=== PATIENT | female | born 1990 | race Caucasian/White ===

== ENCOUNTER 2024-02-20 08:25 | Inpatient (IN) ==
[2024-02-20 09:04] LABS: Venous Bicarbonate HCO3 14.4 mmol/L (24-28)
[2024-02-20 09:10] LABS: ABS Lymphocytes 1.2 10^3/uL (1.0-4.8); ABS Monocytes 0.5 10^3/uL (0.0-0.9); ABS Nucleated RBC 0.01 10^3/ul; Hematocrit 43.6 % (35-45); Hemoglobin 14.3 g/dL (11.5-14.3); Lymphocyte % 6.5 %; Mean Corpuscular Hemoglobin 32.1 pg (27-33); Mean Corpuscular Hgb Conc 32.8 g/dL (31-36); Mean Corpuscular Volume 97.9 fL (80-97); Mean Platelet Volume 7.9 fL (7.5-11.2); Nucleated Red Blood Cells % 0.1 %/100WBC (0.0-0.8); Platelet Count 432 10^3/uL (150-450); Red Blood Count 4.45 10^6/uL (3.63-4.92); Red Cell Distribution Width 12.9 % (12-17); White Blood Count 18.8 10^3/uL (3.8-11.8)
[2024-02-20] MEDS: NS 0.9% 1000 ml BAG 1,000 ML IV ONE ×2 (09:21→10:07)
[2024-02-20] MEDS: Ondansetron 4 mg VIAL 2 MG/ML 2 ml VIAL IV ONE (09:21)
[2024-02-20 09:27] LABS: Urine Appearance Clear; Urine Bilirubin Negative (Negative); Urine Blood Negative (Negative); Urine Color Light-Yellow; Urine Glucose 4+ (>=1000 mg/dL) (Negative); Urine Ketones 4+ (Negative); Urine Nitrite Negative (Negative); Urine Protein Trace (Negative); Urine Urobilinogen Negative (Negative); Urine pH 5.5 (5.0-8.0)
[2024-02-20 09:54] LABS: Albumin 4.4 g/dL (3.2-5.2); Albumin/Globulin Ratio 1.4 (1-3); C Reactive Protein 55.03 mg/L (<8.01); Calcium 9.5 mg/dL (8.6-10.3); Creatinine, Serum 0.88 mg/dL (0.51-0.95); Globulin 3.2 g/dL (2-4); Magnesium 1.8 mg/dL (1.9-2.7); Potassium 5.1 mmol/L (3.5-5.0); Total Bilirubin 1.2 mg/dL (0.2-1.0); Total Protein 7.6 g/dL (6.4-8.9); eGFR CKD-EPI 87.8 (>60)
[2024-02-20] MEDS: NORMOSOL-R pH 7.4 1000 mL BAG 1,000 ML IV ONE (10:28)
[2024-02-20] MEDS: Insulin Infusion 100unit/100mL 100 UNIT/100 ML BAG IV SCH (11:03)
[2024-02-20] MEDS: NORMOSOL-R pH 7.4 1000 mL BAG 1,000 ML IV SCH (11:32)
[2024-02-20] MEDS: D5LR 1000 ml BAG 1,000 ML IV SCH (13:37)
[2024-02-20] MEDS: KCL 20 MEQ/100 ML IVPREMIX 20 MEQ/100 ML BAG IV SCH (14:45)
[2024-02-20 15:40] LABS: Anion Gap 20 mmol/L (2-16); Blood Urea Nitrogen 20 mg/dL (6-24); CO2 Carbon Dioxide 11 mmol/L (22-32); Calcium 8.1 mg/dL (8.6-10.3); Chloride 102 mmol/L (101-111); Creatinine, Serum 0.81 mg/dL (0.51-0.95); Glucose 250 mg/dL (70-100); Sodium 133 mmol/L (135-145)
[2024-02-20] MEDS: Ondansetron 4 mg VIAL 2 MG/ML 2 ml VIAL IV PRN (17:56)
[2024-02-20 18:51] LABS: Calcium 7.9 mg/dL (8.6-10.3); Creatinine, Serum 0.76 mg/dL (0.51-0.95); Potassium 4.1 mmol/L (3.5-5.0); eGFR CKD-EPI 104.7 (>60)
[2024-02-20] MEDS: Potassium Chlor 20 meq TAB.ER PO ONE (19:48)
[2024-02-20 22:28] LABS: Creatinine, Serum 0.79 mg/dL (0.51-0.95)
[2024-02-21] MEDS: Dextrose 50% Syringe 50 ml 25 GM/50 ML SYRINGE IV PUSH PRN (00:47)
[2024-02-21] MEDS: Venlafaxine XR 75 mg PO SCH (08:20)
[2024-02-21 12:32] VITALS: BP 102/60
[2024-02-21] MEDS ORDERED: Insulin LISPRO FOR INSULIN PUMP SUBCUT SCH (13:00)
== END 2024-02-21 13:00 | disposition home or self-care (01) | DRG 862 ==
LOC: ED 08:25 → EDHOLD 10:25 → ICU 10:45
PROVIDERS: ADMIT Student in an Organized Health Care Education/Training Program; ATTEND Student in an Organized Health Care Education/Training Program